=== PATIENT | female | born 2000 | race Asian ===

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

== ENCOUNTER 2021-06-10 23:37 | Emergency (ER) | payer OTHER ==
[~2021-06-10] VITALS: Ht 160 cm; Wt 145.2 kg
[2021-06-11 01:31] LABS: PLATELET COUNT 292 K/uL (152-353)
[2021-06-11 01:40] LABS: POTASSIUM 3.4 mmol/L (3.6-5.2)
[2021-06-11 05:35] VITALS: BP 143/80; TEMP 98.6
== END 2021-06-11 05:37 | disposition home or self-care (01) ==
LOC: ED 23:37
PROVIDERS: Hospitalist
DX: K29.70 Gastritis, unspecified, without bleeding (principal); R11.2 Nausea with vomiting, unspecified; Z20.822 Contact with and (suspected) exposure to COVID-19
CPT/HCPCS: 36415; 80053; 81000; 81025; 83690; 85027; 87635; 96360; 96361; 96365; 96372; 96375; 99284; J1956; J2405; U0003

== ENCOUNTER 2021-06-11 22:47 | Emergency (ER) | payer OTHER ==
[~2021-06-11] VITALS: Ht 160 cm; Wt 147.4 kg
[2021-06-12 00:19] LABS: POTASSIUM 3.5 mmol/L (3.6-5.2)
[2021-06-12 00:46] LABS: PLATELET COUNT 194 K/uL (152-353)
[2021-06-12 01:55] VITALS: BP 108/54; TEMP 98.7
== END 2021-06-12 01:55 | disposition home or self-care (01) ==
LOC: ED 22:47
PROVIDERS: Emergency Medicine Emergency Medical Services
DX: K80.20 Calculus of gallbladder without cholecystitis without obstruction (principal)
CPT/HCPCS: 80053; 81000; 81025; 83690; 85008; 85027; 96360; 96375; 99284; J1885; J2405; Q9963

== ENCOUNTER 2023-04-29 20:03 | Emergency (ER) | payer OTHER ==
[~2023-04-29] VITALS: Ht 160 cm; Wt 136.1 kg
[2023-04-29 20:08] VITALS: TEMP 98.7
[2023-04-29 21:03] LABS: PLATELET COUNT 260 K/uL (152-353)
[2023-04-29 21:47] LABS: POTASSIUM 3.8 mmol/L (3.6-5.2)
[2023-04-29 22:55] VITALS: BP 130/74
== END 2023-04-29 22:55 | disposition home or self-care (01) ==
LOC: ED 20:03
PROVIDERS: Family Medicine
DX: M54.12 Radiculopathy, cervical region (principal); S16.1XXA Strain of muscle, fascia and tendon at neck level, initial encounter
CPT/HCPCS: 36415; 80053; 81025; 85027; 96374; 99284; J1885